=== PATIENT | female | born 1940 | race Caucasian/White ===

== ENCOUNTER 2024-02-15 13:51 | Emergency (ER) | payer MEDICARE, OTHER, SELFPAY ==
[2024-02-15 13:52] VITALS: BP 153/84
--- NOTE | 2024-02-15 15:28 | ED.GENMED ---
History of Present Illness
General
Chief Complaint: Musculo-Skeletal Complaint
Source: patient
Exam Limitations: none
Time Seen by Provider: 02/15/24 15:15
Nursing documentation reviewed up to this point in time: agreed with
Travel History
Have you had any contact with someone who has COVID-19?: No
Do you have any symptoms of coronavirus? Fever > 100 degrees, chills, cough, shortness of breath, sore throat, loss of taste or smell, muscle aches, or headache?: No
History of Present Illness
History of Present Illness:
Patient is an 83-year-old female who presents to the ER with complaints of sharp intermittent shocklike waves of pain down her right leg. She reports that she feels this in her thigh. She noticed this first this morning while in bed and then
intermittently throughout the day with ambulation. She denies any injury. She was concerned about a blood clot called her family doctor who recommended she come to the ER. She however has no history of blood clots and denies any actual swelling.
She denies any fever or chills. She denies any recent injury. She currently is asymptomatic. She is not take anything for pain.
Past History
Past History
ED Past Medical History: Hypercholesterolemia, Psychiatric and Other (OA)
ED Past Surgical History: None, Gynecological and Orthopedic
Social History
Tobacco: Non-smoker
Alcohol: None
Drug: None
Personal: Single
Living: alone
Employment: Retired
Family History
Family History: Other
Review of Systems
Review of Systems
Allergies reviewed?: Yes
All Other Systems: ROS reviewed and negative except as documented in HPI and ROS
Constitutional: Reports no symptoms
Respiratory: Reports no symptoms
Cardiac: Reports no symptoms
ABD/GI: Reports no symptoms
Musculoskeletal: Reports other (intermittent 'shock like' pain down right thigh ); Denies back pain
Skin: Reports no symptoms
Neurological: Denies numbness
Hematologic/Lymphatic: Reports no symptoms
Psychiatric: Reports no symptoms
Phy Exam
General Physical Exam
General Presentation: no apparent distress
General age: appears stated age
General Skin: warm and dry
General Habitus: normal
General Mental: alert
General Hydration: appears well hydrated
Neurological Exam
Neurological Exam: alert, oriented x3 and other (Normal distal sensation to bilateral lower extremities normal dorsiflexion plantarflexion to right leg negative straight leg raise)
Musculoskeletal Exam
Musculoskeletal Exam: other (Normal inspection to right lower extremity with no obvious swelling no redness full range of motion)
Course
Orders/Labs/Results
Orders:
Orders
02/15/24 15:28
Dexamethasone Sod Phosphate [Decadron] 10 mg IM NOW STA
02/15/24 15:30
Venous Doppler Lwr Ext Rt [ Perip Venous LOWER Ext RT] Urgent
Comment:
Reason For Exam: pain to right thigh
Vital Signs
Initial and Last Documented VS:
Initial Vital Signs
Temp Pulse Resp BP Pulse Ox
97.9 F 63 18 153/84 98
02/15/24 13:52 02/15/24 13:52 02/15/24 13:52 02/15/24 13:52 02/15/24 13:52
Last Documented Vital Signs
Temp Pulse Resp BP Pulse Ox
97.9 F 63 18 153/84 98
02/15/24 13:52 02/15/24 13:52 02/15/24 13:52 02/15/24 13:52 02/15/24 13:52
MDM/Problems Addressed
Differential Diagnosis Includes:
Not limited to sciatica, nerve pain less likely DVT less likely infection as there is no evidence of infection on exam.
MDM/Problems Addressed:
Symptoms are consistent with likely sciatica, nerve pain. No evidence of infection on exam no obvious swelling ultrasound negative. Patient was given IM Decadron here will DC on steroids. Patient no acute distress. Patient is not currently on
steroids she takes steroid eyedrops only.
*Radiology
Radiology exam reviewed: radiology read reviewed
*Pulse Oximetry
Patient hypoxic: no
*Critical Care Note
Total Time (30-74mins, 75-104mins- exclusive of procedures): Not Applicable
ED Attending Note
-
Portions of this chart may have been created with voice recognition software.� Occasional wrong word or��sound alike� substitutions may have occurred due to the inherent limitations of voice recognition software.
Discharge Plan
Departure
Patient Disposition: Home (Routine Discharge)
Date of Disposition: 02/15/24
Time of Disposition: 17:08
Patient with high blood pressure during this ER visit?: Yes
Condition: Fair
Covid-19: Not Applicable
Discharge Problem:
Sciatica
Instructions: Sciatica (DC), BLOOD PRESSURE
Prescriptions:
New
methylprednisolone [Medrol (Jean)] 4 mg tablets,dose pack
See Rx Instructions .ROUTE .COMPLEX Qty: 21 0RF
Rx Instructions:
for 6 days
No Action
simvastatin 40 MG tablet
40 mg PO QPM Qty: 0
Neurosur
1 tab PO DAILY
Hyperbalance 615 MG Tab
1 tab PO DAILY
alprazolam 0.5 MG tablet
0.5 mg PO HS
triamterene-hydrochlorothiazid 1 EACH tablet
1 tab PO QPM
hydroxychloroquine 200 MG tablet
200 mg PO BID
sertraline 50 MG tablet
25 mg PO DAILY
Gh3
1 tab PO DAILY
Calcium 1,200 MG Tab
1,200 mg PO DAILY
docusate sodium [Colace] 100 MG capsule
100 mg PO PRN (Reason: constipation)
acetaminophen 325 MG tablet
650 mg PO Q6H 0RF
aspirin 325 MG tablet,delayed release (DR/EC)
325 mg PO DAILY 0RF
mupirocin 1 APPLIC ointment
1 applic intranasal BID 0RF
oxycodone 5 MG tablet
5 mg PO Q4HPRN PRN (Reason: mild pain) 0RF
prednisone 50 MG tablet
50 mg PO DAILY Qty: 4 0RF
albuterol sulfate [Proventil HFA] 90 MCG/PUFF HFA aerosol inhaler
1 puff inhalation Q4HPRN PRN (Reason: shortness of breath) Qty: 1 0RF
doxycycline hyclate 100 MG capsule
100 mg PO BID Qty: 20 0RF
ondansetron 4 mg tablet,disintegrating
4 mg PO Q8H PRN (Reason: nausea and vomiting) Qty: 10 0RF
potassium chloride 40 mEq/15 mL liquid
40 meq PO DAILY Qty: 75 0RF
Coricidin HBP Chest Cliff-Cough 10-200 mg capsule
2 tab-cap PO Q6H PRN (Reason: cough) Qty: 10 0RF
Referrals:
Gabino Lim, [Family Provider] -
Activity Restrictions/Additional Instructions:
As discussed a prescription for steroids was sent to your pharmacy take as directed starting tomorrow. You received the first dose here in the ER. Follow-up with your family doctor in the next 1 days for reevaluation return if any worsening of
symptoms
Interventions
Interventions:
ED-Musculoskeletal Assessment Last Done: 02/15/24 14:56
Discharge Date and Time
Print Language: LITHUANIAN
[2024-02-15] MEDS: DECADRON 10 MG IM (15:35)
== END 2024-02-15 17:41 | disposition home or self-care (01) ==
LOC: EMR 13:51
PROVIDERS: EMERGENCY PHYSICIAN Emergency Medicine; FAMILY PHYSICIAN Family Medicine
DX: M54.31 Sciatica, right side (principal); E78.00 Pure hypercholesterolemia, unspecified
CPT/HCPCS: 99284; 96372; 93971

== ENCOUNTER → 2024-11-27 12:06 | Outpatient (REF) | payer MEDICARE, OTHER, SELFPAY | LOC: HWRAD 12:06 | PROVIDERS: ATTENDING PHYSICIAN Internal Medicine Critical Care Medicine; FAMILY PHYSICIAN Family Medicine | DX: R53.81 Other malaise (principal); R53.83 Other fatigue | CPT/HCPCS: 71046 ==

== ENCOUNTER → 2025-03-31 07:37 | Outpatient (REF) | payer MEDICARE, OTHER, SELFPAY ==
[2025-03-31 10:03] LABS: % Basophils 0.6 % (0-2); % Eosinophils 1.9 % (0-6); % Immature Granulocytes 0.1 % (0-0.5); % Lymphocytes 17.6 % (20.5-51.1); % Monocytes 8.1 % (1.7-9.3); % Neutrophils 71.7 % (42.2-75.2); Absolute Eosinophils 0.1 10^3/uL (0-0.7); Absolute Lymphocytes 1.3 10^3/uL (1.2-3.4); Absolute Monocytes 0.6 10^3/uL (0.1-0.6); Absolute Neutrophils 5.2 10^3/uL (1.4-6.5); Hematocrit 40.5 % (37.0-47.0); Hemoglobin 13.8 g/dL (12.0-16.0); Mean Corp Hgb Conc. 34.1 g/dL (33.0-37.0); Mean Corpuscular Hgb 30.3 pg (27.0-31.0); Mean Corpuscular Volume 88.8 fL (81.0-99.0); Mean Platelet Volume 8.5 fL (7.4-10.4); Nucleated Red Blood Cells % 0 %; Platelet Count 221 10^3/uL (130-400); Red Blood Cell Count 4.56 10^6/uL (4.20-5.40); Red Cell Dist. Width 12.2 % (11.5-14.5); White Blood Cell Count 7.2 10^3/uL (4.8-10.8)
[2025-03-31 10:10] LABS: Urine Bilirubin Negative (Negative); Urine Color Yellow; Urine Glucose Negative (Negative); Urine Ketone Negative (Negative); Urine Nitrite Negative (Negative); Urine Urobilinogen Negative (Neg - 1+)
[2025-03-31 10:18] LABS: Urine Albumin 2+ (Neg - Trace); Urine Character Slightly Cloudy (Clear); Urine Leukocyte 3+ (Negative); Urine Occult Blood 2+ (Negative); Urine Specific Gravity 1.015 (<1.030)
[2025-03-31 10:19] LABS: ALT (SGPT) 18 U/L (0-35); AST (SGOT) 24 U/L (14-36); Albumin 4.1 g/dl (3.5-5.0); Alkaline Phosphatase 59 U/L (38-126); Blood Urea Nitrogen 21 mg/dl (7-17); Calcium 9.4 mg/dl (8.4-10.2); Carbon Dioxide 31 mmol/L (22-30); Chloride 108 mmol/L (98-107); Glucose 118 mg/dl (70-99); HDL Cholesterol 66 mg/dl; LDL Cholesterol, Calculated 93 mg/dl; Potassium 4.4 mmol/L (3.5-5.1); Sodium 144 mmol/L (135-145); Total Bilirubin 0.7 mg/dl (0.2-1.3); Total Cholesterol 192 mg/dl (50-199); Total Protein 6.6 g/dl (6.3-8.2); Triglyceride 165 mg/dl (10-149); Very Low Density Lipoprotein 33 mg/dl (0-30); eGFR > 60.00
[2025-03-31 11:47] LABS: Urine Squamous Cell >30 /LPF (Few)
[2025-03-31 11:48] LABS: Urine Amorphous Seen
[2025-03-31 11:49] LABS: Urine White Cell >100 /HPF (0-5)
[2025-03-31 11:50] LABS: Urine Bacteria Few (Negative)
== END ==
LOC: HWLAB 07:37
PROVIDERS: ATTENDING PHYSICIAN Family Medicine; REFERRING PHYSICIAN Internal Medicine Rheumatology
DX: Z00.00 Encounter for general adult medical examination without abnormal findings (principal); I10 Essential (primary) hypertension; E78.5 Hyperlipidemia, unspecified
CPT/HCPCS: 36415; 80053; 80061; 81003; 81015; 84443; 85025

== ENCOUNTER → 2025-05-20 10:14 | Outpatient (REF) | payer MEDICARE, OTHER, SELFPAY ==
[2025-05-20 14:40] LABS: Folate > 20.0 ng/ml (2.76-20); Vitamin B12 914 pg/ml (239-931)
== END ==
LOC: HWLAB 10:14
PROVIDERS: ATTENDING PHYSICIAN Specialist; FAMILY PHYSICIAN Family Medicine; REFERRING PHYSICIAN Internal Medicine Rheumatology
DX: G93.41 Metabolic encephalopathy (principal); D51.9 Vitamin B12 deficiency anemia, unspecified; U09.9 Post COVID-19 condition, unspecified
CPT/HCPCS: 36415; 82607; 82746; 85652

== ENCOUNTER → 2025-07-03 07:01 | Outpatient (REF) | payer MEDICARE, OTHER, SELFPAY | LOC: MRI 3T 07:01 | PROVIDERS: ATTENDING PHYSICIAN Specialist; FAMILY PHYSICIAN Family Medicine | DX: G93.41 Metabolic encephalopathy (principal) | CPT/HCPCS: 70551 ==